=== PATIENT | female | born 1975 | race Caucasian/White ===

== ENCOUNTER 2022-12-20 11:59 | Emergency (ER) | payer MEDICAID, OTHER ==
[~2022-12-20] VITALS: Ht 170.2 cm; Wt 68.8 kg
[2022-12-20] MEDS ORDERED: NS 500 ML IV ONE (13:35)
[2022-12-20] MEDS ORDERED: METOCLOPRAMIDE INJ 10MG/2ML VIAL IV ONE (13:35)
[2022-12-20 16:15] VITALS: BP 135/85
== END 2022-12-20 16:20 | disposition short-term general hospital (02) ==
LOC: M ED 11:59
DX: D18.02 Hemangioma of intracranial structures (principal); E03.9 Hypothyroidism, unspecified; Z88.0 Allergy status to penicillin
CPT/HCPCS: 70450; 96361; 96374; 99285; J2765

== ENCOUNTER → 2023-09-17 | Outpatient (CLI) | payer OTHER ==
[~2023-09-17] MED LIST: PROHANCE 279.3MG/ML 15ML VIAL As Ordered ONE
== END ==
LOC: M RAD 08:04
PROVIDERS: ATTEND Neurological Surgery
DX: Q28.3 Other malformations of cerebral vessels (principal); D18.02 Hemangioma of intracranial structures
CPT/HCPCS: 70553; A9576

== ENCOUNTER → 2024-07-14 | Outpatient (CLI) | payer OTHER | LOC: M PLARAD 14:15 | PROVIDERS: ATTEND Otolaryngology | DX: H91.90 Unspecified hearing loss, unspecified ear (principal) ==